=== PATIENT | female | born 2000 | race Caucasian/White ===

== ENCOUNTER 2024-04-23 20:30 | Emergency (ER) | payer MEDICAID ==
[~2024-04-23] VITALS: Ht 165.1 cm; Wt 82.0 kg
[2024-04-23 20:34] VITALS: BP 135/69; PULSE 78; RESP 24; TEMP 98.2; O2SAT 100
== END 2024-04-24 02:32 | disposition left against medical advice (07) ==
LOC: ER 20:30
DX: R11.2 Nausea with vomiting, unspecified (principal); R10.9 Unspecified abdominal pain; Z53.21 Procedure and treatment not carried out due to patient leaving prior to being seen by health care provider